=== PATIENT | female | born 2000 | race Caucasian/White ===

== ENCOUNTER 2019-05-11 16:24 | Observation (INO) ==
[2019-05-11] MEDS ORDERED: SODIUM CHLORIDE 0.9% 1000ML 1,000 ML IV ONE (17:32)
[2019-05-11] MEDS ORDERED: ONDANSETRON INJ 2 MG/ML 2 ML VIAL IV STA (17:32)
[2019-05-11 18:27] LABS: Basophils # (auto) 0.02 K/uL (0-0.2); Basophils % (auto) 0.1 %; Eosinophils # (auto) 0.01 K/uL (0-0.5); Eosinophils % (auto) 0.1 %; Hematocrit (blood only) 43.4 % (37-47); Hemoglobin 15.6 g/dL (12.0-16.0); Immature Granulocytes # (auto) 0.03 K/uL (0.00-0.02); Immature Granulocytes % (auto) 0.2 %; Lymphocytes # (auto) 3.16 K/uL (1.2-3.4); Lymphocytes % (auto) 20.6 %; Mean Corpuscular Hemoglobin 31.8 pg (25-34); Mean Corpuscular Hgb Conc 35.9 g/dL (32-36); Mean Corpuscular Volume 88.6 fL (80-100); Mean Platelet Volume 9.2 fL (7.4-10.4); Monocytes # (auto) 1.41 K/uL (0.11-0.59); Monocytes % (auto) 9.2 %; Neutrophils % (auto) 69.8 %; Platelet Count 268 K/uL (130-400); RDW Coefficient of Variation 12.2 % (11.5-14.5); RDW Standard Deviation 39.2 fL (36.4-46.3); White Blood Count 15.33 K/uL (4.8-10.8)
[2019-05-11 18:43] LABS: Albumin Level 4.8 gm/dl (3.4-5.0); BUN Creatinine Ratio 11.3 (10-20); Calcium 9.4 mg/dl (8.5-10.1); Creatinine Clr Calc Pharmacy 107.6 ml/min; Est GFR (African American) 145.2; Est GFR (Non-African American) 125.3; Potassium 3.7 mmol/L (3.5-5.1)
[2019-05-11 18:46] LABS: Albumin Globulin Ratio 1.4 (0.9-2); Globulin 3.4 gm/dl (2.5-4.0); Total Protein 8.2 gm/dl (6.4-8.2)
[2019-05-11 18:53] LABS: Appearance Urine Clear (Clear); Bilirubin Urine Negative (Negative); Blood Urine Negative (Negative); Color Urine Yellow; Glucose Urine UA Negative (Negative); Leukocyte Esterase Urine Negative (Negative); Nitrite Urine Negative (Negative); Protein Urine Negative (Negative); Specific Gravity Urine 1.025 (1.000-1.030); Urobilinogen Urine Negative (Negative)
[2019-05-11] MEDS ORDERED: IOVERSOL 100ml IV PRN (18:56)
[2019-05-11 19:05] LABS: Ketones Urine 3+ (Negative)
--- NOTE | 2019-05-11 19:17 | CT Scan Report ---
CT abd pelvis IV con only CLINICAL HISTORY: 19 years-old Female presenting with RLQ pain eval for appendicitis. TECHNIQUE: Multidetector CT of the abdomen and pelvis was performed after the administration of intra venous contrast. IV contrast: 91 mL of Optiray 320. One or more dose lowering techniques were used co nsistent with the principles of ALARA (as low as reasonably achievable), including automatic exposure control, mA or kV adjustment to individual patient size, and/or use of iterative reconstruction. COMPARISON: None. CT DOSE (mGy.cm): The estimated cumulative dose is 241.62 mGy.cm. FINDINGS: [employer] topogram: Unremarkable. Lung bases: Normal heart size. No pericardial or pleural effusion. No focal infiltrate or nodule at t he lung bases. Liver: Normal morphology. No liver lesion. Patent hepatic vasculature. Biliary: No intrahepatic or extrahepatic biliary ductal dilatation. Normal gallbladder. Pancreas: Normal. Spleen: Normal. Adrenal glands: Normal. Kidneys and ureters: Normal. No hydronephrosis. Bladder: Incompletely evaluated secondary to underdistention. Pelvic organs: Uterus and ovaries normal. Dominant follicle in the right ovary. Bowel: Mucosal hyperemia of the mildly distended appendix, which measures up to 8 mm in diameter at t he tip. No periappendiceal fluid. Trace if any of periappendiceal fat infiltration is present. No bow el obstruction. Peritoneal cavity: Trace free fluid in the pelvis. No free intraperitoneal gas. No loculated fluid co llection to suggest abscess. Lymph nodes: No enlarged lymph nodes in the abdomen or pelvis. Vasculature: Aorta and IVC patent and normal in caliber. Abdominal wall: Normal. Musculoskeletal: Normal. IMPRESSION: 1. Findings concerning for early acute appendicitis with a mildly dilated and hyperemic appendix. No tably, the appendix is only dilated at the tip. Surgical consultation is recommended. If surgical int ervention is not sought, serial examinations are necessary at a minimum with consideration for append iceal ultrasound versus repeat CT abdomen pelvis with oral contrast. If attempted interrogation of th e appendix with ultrasound is sought, please correlate with the location of the appendix on CT locate d in the iliac fossa, which has been marked on the images. 2. Trace free fluid in the pelvis likely physiologic. 3. Dominant follicle in the right ovary. The report will be called/faxed according to standard departmental protocol for a critical finding. Electronically signed by: Matt White M.D. 05/11/2019 7:15 PM
[2019-05-11] MEDS ORDERED: ATROPINE SULFATE 0.1 MG/ML 10ML SYR IV PRN (20:21)
[2019-05-11] MEDS ORDERED: ePHEDrine sulfate 50 MG/ML AMP IV PRN (20:21)
[2019-05-11] MEDS ORDERED: ONDANSETRON INJ 2 MG/ML 2 ML VIAL IV PRN ×2 (20:21→22:53)
[2019-05-11] MEDS ORDERED: BUPIVACAINE 0.5 % 5 MG/1 ML MPF 30ML VIAL ONE (20:23)
[2019-05-11] MEDS ORDERED: PROPOFOL IV EMULSION 10 MG/ML 20 ML VIAL IV ONE (20:32)
[2019-05-11] MEDS ORDERED: fentaNYL citrate 100 MCG/2 ML VIAL ONE ×2 (20:32→22:14)
[2019-05-11] MEDS ORDERED: LIDOCAINE HCL 2% 2 ML VIAL/AMP(20MG/ML) INFIL ONE (20:32)
--- NOTE | 2019-05-11 20:47 | History & Physical Report ---
Date of Service May 11, 2019 Assessment & Plan (1) Acute appendicitis: discussed laparoscopic appendectomy with risks of bleeding, infection, conversion to open, postop ileus/ abscess, negative appy. Consent signed. For OR tonight. Present on Admission?: Yes History of Present Illness 19 yr old [employer] student who presents with right lower quadrant abdominal pain since 3 am. Persistent, constant, sharp, worse with activity, 10/10 at times in severity, never had similar symptoms in past. Vomiting most of the day. Last meal was around midnight. [place] chilled but did not take temperature. Came to ER and CT showed appendicitis. Only past surgical history is ACL repair. Primary Care Provider: [facility] Allergies Allergy/AdvReac Type Severity Reaction Status Date / Time No Known Allergies Allergy Unverified 05/11/19 19:13 Home Medications Home Medications Medication Instructions Recorded Confirmed Type No Known Home Medications 05/11/19 05/11/19 History Past Med/Surg History Medical History No significant past medical history Surgical History No significant past surgical history Family History Other No pertinent family history Social History current occupational status: student Feels Safe at Home: Yes Smoking Status: Never smoker Review of Systems Constitutional: + chills Eyes: no problem reported Ear, Nose, Mouth, Throat: no problem reported Respiratory: no problem reported Cardiovascular: no problem reported Gastrointestinal: as per Subjective / HPI Genitourinary: no problem reported Neurologic: no problem reported Psychiatric: no problem reported Endocrine: no problem reported Physical Exam Constitutional: WD/WN, vitals as above Eyes: PERRL, conjunctivae normal, anicteric sclerae Respiratory: normal respiratory effort, lungs clear to auscultation Cardiovascular: RRR, no murmur, no edema Gastrointestinal (Abdomen): Inspection/Auscultation: abdomen normal to inspection and normal bowel sounds; abdomen not distended Percussion/Palpation: + abdomen tender (RLQ) and abdomen soft; no guarding Musculoskeletal: no cyanosis or clubbing, extremities motor strength 5/5 Neurologic: CN's II-XI intact bilaterally and moves all extremities Psychiatric: A+Ox3, euthymic affect Results & Data Vital Signs (Past 12 Hours) Vital Signs Temp Pulse Pulse Resp BP BP Pulse Ox 05/11/19 20:38 78 18 118/78 100 05/11/19 19:15 88 18 116/77 99 05/11/19 17:10 36.8 C 87 20 114/[address] 15.[address] scan showed acute appendicitis (1) Acute appendicitis Acute appendicitis type: unspecified acute appendicitis type Qualified Code(s): K35.80 - Unspecified acute appendicitis
--- NOTE | 2019-05-11 20:57 | Anesthesiology Consultation ---
Date of Service May 11, 2019 Assessment & Plan (1) Encounter for pre-operative examination: Chart Review Chart Review: Acceptable Risk for Surgery Consults Requested none ASA [id number] Proposed Anesthesia Anesthesia Type: General Risk / Benefits Reviewed With: PT / POA / Parent / Guardian, Accepts Plan and Informed Consent Obtained History Surgery Operation Date: 05/11/19 20:15 Proposed Procedures p Laparoscopic Appendectomy - Rajni Martin MD Height/Weight Height: 5 ft 3 in Weight: 54.2 kg Allergies Allergy/AdvReac Type Severity Reaction Status Date / Time No Known Allergies Allergy Unverified 05/11/19 19:13 Medications Home Medications Medication Instructions Recorded Confirmed Last Taken No Known Home Medications 05/11/19 05/11/19 Unknown Active Medications Generic Name Dose Route Start Last Admin Trade Name Freq PRN Reason Stop Dose Admin Ioversol 91 ml 05/11/19 18:56 05/11/19 18:56 Optiray 320 100ml IV 05/15/19 18:55 91 ml ONCE PRN Administration Interaction Checking NPO Date Last Intake of Fluids: 05/11/19 Time Last Intake of Fluids: 18:00 Date Last Intake of Solids: 05/11/19 Time Last Intake of Solids: 00:00 Past Medical History Medical History No significant past medical history Exercise / Class Metabolic Activity II 4-5 Yardwork/Stairs/Walk up hill Past Family History Family History Other No pertinent family history Past Surgical History Surgical History No significant past surgical history S/P ACL repair Past Anesthesia History No Hx of Anesthesia Complications and No Family Hx of Anesthesia Complications History of PONV No Hx of PONV and No Hx of Motion Sickness Social History Smoking Status: Never smoker Physical Exam Vital Signs Last Vital Signs Temp 98.2 F 05/11/19 17:10 Pulse 78 05/11/19 20:38 Resp 18 05/11/19 20:38 BP 118/78 05/11/19 20:38 Pulse Ox 100 05/11/19 20:38 ENMT Mouth: + chipped teeth (R upper front) Thyromental Distance: > or= 3.5 Finger Breadths Mallampati Class: I Neck normal visual inspection Respiratory normal respiratory effort Auscultation: lungs clear to auscultation bilaterally Cardiovascular Rate/Rhythm: regular rate and regular rhythm Testing Laboratory Results 05/11/19 18:15 05/11/19 18:15 Urine Color Yellow 05/11/19 18:00 Urine Appearance Clear (Clear) 05/11/19 18:00 Urine pH 7.0 (4.5-7.5) 05/11/19 18:00 Ur Specific Sebastian 1.025 (1.000-1.030) 05/11/19 18:00 Urine Protein Negative (Negative) 05/11/19 18:00 Urine Glucose (UA) Negative (Negative) 05/11/19 18:00 Urine Ketones 3+ (Negative) H 05/11/19 18:00 Urine Nitrite Negative (Negative) 05/11/19 18:00 Ur Leukocyte Esterase Negative (Negative) 05/11/19 18:00 05/11/19 18:00 POC Ur Test NEG
[2019-05-11] MEDS ORDERED: cefOXitin 2,000 MG/60 ML BAG IV STA (20:59)
[2019-05-11] MEDS ORDERED: SUCCINYLCHOLINE CHLORIDE 20 MG/ML 10 ML VIAL ONE (21:22)
[2019-05-11] MEDS ORDERED: ROCURONIUM BROMIDE 10 MG/ML 5 ML VIAL ONE (21:22)
--- NOTE | 2019-05-11 21:51 | Operative Report ---
Post Operative Report Pre & Post Diagnosis Operation Date: 05/11/19 20:15 Pre-Op Diagnosis: Appendicitis Post-Op Diagnosis: Appendicitis I identified the patient and participated in the time-out.: Yes Procedure Operation Date: 05/11/19 20:15 Actual Procedures p Laparoscopic Appendectomy(Not Applicable) - Rajni Martin MD Surgeon Rajni Martin MD Green End Man none Estimated Blood Loss 5 Findings Consistent with Post-Op Diagnosis Specimens appendix Description of Procedure see dictated op note. Findings of early acute appendicitis with thickened mildly hyperemic appendix I attest to the content of the Intraoperative Record and any orders documented therein. Any exceptions are noted below.
[2019-05-11] MEDS: fentaNYL citrate 100 MCG/2 ML VIAL IV PRN ×2 (22:14→22:19)
--- NOTE | 2019-05-11 22:31 | Anesthesiology Progress Note ---
Date of Service May 11, 2019 Anesthesia Post Procedure Vital Signs Vital Signs: Temp Pulse Pulse Resp BP BP Pulse Ox 05/11/19 22:20 95 H 14 135/87 93 05/11/19 22:10 84 14 120/90 98 05/11/19 22:05 90 14 135/87 99 05/11/19 21:55 98.1 F 105 H 18 108/89 99 05/11/19 20:38 78 18 118/78 100 05/11/19 19:15 88 18 116/77 99 05/11/19 17:10 98.2 F 87 20 114/81 96 Pain Intensity Right Abdomen: Pain Intensity: 5 Transfer of Care Handoff Completed per policy Notes Mental Status: alert / awake / arousable and participated in evaluation Patient Amnestic to Procedure: Yes Nausea / Vomiting: adequately controlled Pain: adequately controlled Airway Patency, RR, SpO2: stable & adequate BP & HR: stable & adequate Hydration State: stable & adequate Anesthetic Complications: no major complications apparent and Pt Satisfied with anesthetic care
[2019-05-11] MEDS ORDERED: KETOROLAC 30 MG/ML VIAL IV PRN ×2 (22:53)
[2019-05-11] MEDS ORDERED: MoRPHine SULFATE 4 MG/ML 1 ML CARP\\VIAL IV PRN (22:53)
[2019-05-11] MEDS ORDERED: IBUPROFEN 200 MG TAB PO PRN (22:53)
[2019-05-11] MEDS ORDERED: MoRPHine SULFATE 2 MG/ML CARP IV PRN ×2 (22:53)
[2019-05-11] MEDS ORDERED: ACETAMINOPHEN 325 MG TAB PO PRN (22:53)
[2019-05-11] MEDS ORDERED: OXYCODONE/ACETAMINOPHEN 5mg/325mg TAB PO PRN ×2 (22:53)
--- NOTE | 2019-05-11 22:59 | Operative Report ---
DATE OF OPERATION: 05/11/2019 PREOPERATIVE DIAGNOSIS: Acute appendicitis. POSTOPERATIVE DIAGNOSIS: Acute appendicitis. OPERATIVE PROCEDURE: Laparoscopic appendectomy. SURGEON: Rajni Martin MD MILL TENDER SECOND OPERATOR: None. ANESTHESIA: General endotracheal anesthesia. ASA CLASS: 1E. SPECIMENS: Appendix. DRAINS: None. COMPLICATIONS: None. OPERATIVE FINDINGS: Dilated thickened mildly hyperemic appendix consistent with early acute appendicitis. INDICATIONS: Ms. Gutierres is a 19-year-old woman who presented with clinical findings of acute appendicitis. CT scan showed a mildly thickened, mildly dilated appendix. She was counseled regarding laparoscopic appendectomy and consented to proceed. DESCRIPTION OF PROCEDURE: The patient received Mefoxin preoperatively after the induction of general endotracheal anesthesia and placed in sequential compression devices. Her abdomen was sterilely prepped and draped. She was positioned in Trendelenburg. An infraumbilical incision was made and a Veress needle was placed into the peritoneal cavity. This was tested with the saline drop test. Initial pressure was 2 mmHg and this was taken up to 15?mmHg. A 5-mm trocar was placed and an additional 5-mm was placed in the left lower quadrant under direct vision. The 5-mm trocar at the infraumbilical area was changed out to a 12 mm under direct vision and the second 5mm was placed in the midline pubic area under direct vision. The appendix was curled up on the lateral side of the cecum. This was noted to be thickened and mildly dilated at the tip with the tip measuring just under a centimeter. There was mild hyperemia all consistent with early acute appendicitis. The base of the appendix on the cecum was clean. The appendix was grasped and a window created on the base of the appendix on the cecum. This was divided with a firing of the Endo-MITALI 45 purple load stapler. The appendiceal mesentery was taken with a single load of the melgar load for the stapler. The appendix was placed in an Endocatch and removed through the infraumbilical incision. Hemostasis was noted to be present. The abdomen was irrigated and suctioned clear. Trocars were removed. Marcaine 30 mL of 0.5% had been used for local anesthesia throughout the procedure. The fascia of the infraumbilical incision was closed with 0 Vicryl stitches placed anteriorly. The skin of all 3 incisions closed with running subcuticular 4-0 Vicryl sutures. Steri-Strip and sterile dressings were applied. She was awakened and taken to recovery in stable condition. I attest to the content of the Intraoperative Record and any orders documented therein. Any exception s are noted below.
[2019-05-11] MEDS: LACTATED RINGER'S 1,000 ML IV SCH ×2 (23:07→23:19)
--- NOTE | 2019-05-11 23:44 | Emergency Department Note ---
Entered by Shawnee Geller acting as a scribe for Nick Lizama MD History of Present Illness General Chief complaint: Abdominal Pain Stated complaint: ABDOMINAL PAIN Source: patient History of Present Illness Onset (ago): hour(s) (0300 this morning) Location: abdomen (RLQ) Radiation: non-radiation Pain Consistency: + constant Maximum Pain Intensity: 6 Quality: + sharp and + other (RLQ abdominal pain) Relieved By: + none Exacerbated By: + none Associated symptoms: + other (Positive vomiting (abnormal after drinking as she believes she did not drink a lot), fevers, vaginal discharge, chance of , urinary symptoms, previous appendectomy) The patient is a 19 year old female who presents to the ED with complaints of RLQ abdominal pain beginning at 0300 today. She describes her pain as sharp and notes it does not radiate. She states her pain is constant and nothing modifies it. She notes she drank alcohol last night and was vomiting this morning. She states this is abnormal for her as she did not drink a lot of alcohol to cause her to vomit. Pt denies any fevers, abnormal vaginal bleeding or vaginal discharge, chance of , urinary symptoms, previous appendectomy. Home Medications Home Medications Medication Instructions Recorded Confirmed Type No Known Home Medications 05/11/19 05/11/19 History Allergies Allergy/AdvReac Type Severity Reaction Status Date / Time No Known Allergies Allergy Unverified 05/11/19 19:13 Past Med/Surg History Medical History No significant past medical history Surgical History No significant past surgical history S/P ACL repair Family History Other No pertinent family history Social History current occupational status: student Feels Safe at Home: Yes Smoking Status: Never smoker Review of Systems See HPI for pertinent positives & negatives. and A total of 10 systems reviewed and were otherwise negative Physical Exam Vital Signs Vital Signs - 24 hr 05/11/19 17:10 05/11/19 19:15 05/11/19 20:38 Temperature 36.8 C Temperature Source Oral Sepsis Recent Fever Within 48 Hours No Sepsis Action Taken by Nursing No Action Required Pulse Rate 87 78 Pulse Rate [Apical] 88 Pulse Rhythm Regular Pulse Rhythm [Apical] Pulse Strength Normal Respiratory Rate 20 18 18 Respiratory Effort / Characteristics Non-Labored Spontaneous Respiratory Depth Normal Respiratory Pattern Regular Blood Pressure 114/81 118/78 Blood Pressure [Left Arm] 116/77 Blood Pressure Mean 92 Blood Pressure Mean [Left Arm] 90 Blood Pressure Position [Left Arm] Pulse Oximetry 96 99 100 Oxygen Delivery Method Room Air Room Air Oxygen Flow Rate 05/11/19 21:55 Temperature 36.7 C Temperature Source Oral Sepsis Recent Fever Within 48 Hours Sepsis Action Taken by Nursing Pulse Rate Pulse Rate [Apical] 105 H Pulse Rhythm Pulse Rhythm [Apical] Regular Pulse Strength Respiratory Rate 18 Respiratory Effort / Characteristics Non-Labored Spontaneous Respiratory Depth Normal Respiratory Pattern Regular Blood Pressure Blood Pressure [Left Arm] 108/89 Blood Pressure Mean Blood Pressure Mean [Left Arm] 95 Blood Pressure Position [Left Arm] Semi-fowlers Pulse Oximetry 99 Oxygen Delivery Method Oxymask Oxygen Flow Rate 10 Constitutional: Vital signs reviewed. Eyes: Pupils are equal round reactive to light. Conjunctiva are noninjected. ENT: Pharynx is clear without erythema or exudate. Mucous membranes are dry. Neck supple without meningeal signs. Respiratory: Clear to auscultation bilaterally. Breath sounds are equal bilaterally. Cardiovascular: Regular rate and rhythm. No rubs or gallops. GI: Soft, nondistended. RLQ tenderness. No guarding. Bowel sounds are present. Musculoskeletal: No peripheral edema. No lower extremity tenderness. No CVA tenderness. Integumentary: No cyanosis. Neurological: The patient is awake and alert. No focal deficits. Psychiatric: Normal affect. Course 1713: Past medical records reviewed. The patient was evaluated in room A11. A complete history and physical exam was performed. 1844: I discussed her test results. She is waiting for her CT. 2001: I discussed the patients results with her at this time. 2010: Discussed the patient's case with Dr. Martin, General Surgery. She is on her way and has notified the OR team. 2012: I reevaluated the patient at this time. I spoke to the patient's mother on the telephone as per her request. Administered Medications Fentanyl Citrate (Fentanyl Citrate) 50 mcg IV Q5M PRN PRN Reason: PACU Use Only-Pain Stop: 05/12/19 01:21 Last Admin: 05/11/19 22:19 Dose: 50 mcg Documented by: [id number] Admin: 05/11/19 22:14 Dose: 50 mcg Documented by: [id number] Lactated Ringer's (Lr) 1,000 mls @ 100 mls/hr IV .Q10H WILLIAM Stop: 06/10/19 22:52 Last Admin: 05/11/19 23:19 Dose: 100 mls/hr Documented by: [id number] Infusion: 05/11/19 23:19 Dose: 100 mls/hr Documented by: [id number] Admin: 05/11/19 23:07 Dose: 100 mls/hr Documented by: [id number] Ioversol (Optiray 320 100ml) 91 ml IV ONCE PRN PRN Reason: Interaction Checking Stop: 05/15/19 18:55 Last Admin: 05/11/19 18:56 Dose: 91 ml Documented by: [id number] Morphine Sulfate (Morphine Sulfate) 2 mg IV Q3H PRN PRN Reason: MODERATE Pain (Scale 4,5,6) Stop: 05/25/19 22:52 Last Admin: 05/11/19 23:07 Dose: 2 mg Documented by: [id number] Discontinued Medications Bupivacaine HCl (Marcaine 0.5% Mpf) Confirm Administered Dose 30 ml .ROUTE .STK- MED ONE Stop: 05/11/19 20:24 Last Admin: 05/11/19 21:37 Dose: 30 ml Documented by: [id number] Fentanyl Citrate (Fentanyl Citrate) Confirm Administered Dose 100 mcg .ROUTE .STK-MED ONE Stop: 05/11/19 22:15 Last Admin: 05/11/19 23:18 Dose: Not Given Documented by: [id number] Sodium Chloride (Nss 1000ml) 1,000 mls @ 999 mls/hr IV .Q1H1M ONE Stop: 05/11/19 18:32 Last Infusion: 05/11/19 22:55 Dose: 0 mls/hr Documented by: [id number] Admin: 05/11/19 18:15 Dose: 999 mls/hr Documented by: [id number] Cefoxitin Sodium (Mefoxin) 2,000 mg in 60 mls @ 100 mls/hr IV NOW STA Stop: 05/11/19 21:34 Last Infusion: 05/11/19 22:54 Dose: 0 mls/hr Documented by: [id number] Admin: 05/11/19 21:10 Dose: 100 mls/hr Documented by: [id number] Ondansetron HCl (Zofran) 4 mg IV NOW STA Stop: 05/11/19 17:33 Last Admin: 05/11/19 18:15 Dose: 4 mg Documented by: [id number] Medical Decision Making Differential Diagnosis Differential diagnosis: Etiologies such as acute appendicitis, perforation, abscess, ovarian cyst, ectopic , dehydration, as well as others were entertained. Medical Records Attestation: I reviewed the patient's medical records. Home Medications Current Medication List: was personally reviewed by me Laboratory Data Attestation: I reviewed the patient's lab results. Result diagrams: 05/11/19 18:15 05/11/19 18:15 Lab Results 05/11/19 05/11/19 05/11/19 Range/Units 18:00 18:00 18:15 WBC 15.33 H (4.8-10.8) K/uL RBC 4.90 (4.2-5.4) M/uL Hgb 15.6 (12.0-16.0) g/dL Hct 43.4 (37-47) % MCV 88.6 (80-100) fL MCH 31.8 (25-34) pg MCHC 35.9 (32-36) g/dL RDW Std Deviation 39.2 (36.4-46.3) fL RDW Coeff of Yousif 12.2 (11.5-14.5) % Plt Count 268 (130-400) K/uL MPV 9.2 (7.4-10.4) fL Immature Gran % (Auto) 0.2 % Neut % (Auto) 69.8 % Lymph % (Auto) 20.6 % [place] % (Auto) 9.2 % Eos % (Auto) 0.1 % Baso % (Auto) 0.1 % Immature Gran # (Auto) 0.03 H (0.00-0.02) K/uL Neut # (Auto) 10.70 H (1.4-6.5) K/uL Lymph # (Auto) 3.16 (1.2-3.4) K/uL [place] # (Auto) 1.41 H (0.11-0.59) K/uL Eos # (Auto) 0.01 (0-0.5) K/uL Baso # (Auto) 0.02 (0-0.2) K/uL Sodium (136-145) mmol/L Potassium (3.5-5.1) mmol/L Chloride (98-107) mmol/L Carbon Dioxide (21-32) mmol/L Anion Gap (3-11) BUN (7-18) mg/dl Creatinine (0.6-1.2) mg/dl Est Cr Clr Drug Dosing ml/min Est GFR ( Amer) Est GFR (Non-Af Amer) BUN/Creatinine Ratio (10-20) Glucose (70-99) mg/dl Calcium (8.5-10.1) mg/dl Total Bilirubin (0.2-1) mg/dl AST (15-37) U/L ALT (12-78) U/L Alkaline Phosphatase (45-117) U/L Total Protein (6.4-8.2) gm/dl Albumin (3.4-5.0) gm/dl Globulin (2.5-4.0) gm/dl Albumin/Globulin Ratio (0.9-2) Lipase (73-393) U/L Urine Color Yellow Urine Appearance Clear (Clear) Urine pH 7.0 (4.5-7.5) Ur Specific [place] 1.025 (1.000-1.030) Urine Protein Negative (Negative) Urine Glucose (UA) Negative (Negative) Urine Ketones 3+ H (Negative) Urine Blood Negative (Negative) Urine Nitrite Negative (Negative) Urine Bilirubin Negative (Negative) Urine Urobilinogen Negative (Negative) Ur Leukocyte Esterase Negative (Negative) POC Ur Test NEG (NEG) 05/11/19 Range/Units 18:15 WBC (4.8-10.8) K/uL RBC (4.2-5.4) M/uL Hgb (12.0-16.0) g/dL Hct (37-47) % MCV (80-100) fL MCH (25-34) pg MCHC (32-36) g/dL RDW Std Deviation (36.4-46.3) fL RDW Coeff of Yousif (11.5-14.5) % Plt Count (130-400) K/uL MPV (7.4-10.4) fL Immature Gran % (Auto) % Neut % (Auto) % Lymph % (Auto) % [place] % (Auto) % Eos % (Auto) % Baso % (Auto) % Immature Gran # (Auto) (0.00-0.02) K/uL Neut # (Auto) (1.4-6.5) K/uL Lymph # (Auto) (1.2-3.4) K/uL [place] # (Auto) (0.11-0.59) K/uL Eos # (Auto) (0-0.5) K/uL Baso # (Auto) (0-0.2) K/uL Sodium 138 (136-145) mmol/L Potassium 3.7 (3.5-5.1) mmol/L Chloride 106 (98-107) mmol/L Carbon Dioxide 24 (21-32) mmol/L Anion Gap 8.0 (3-11) BUN 8 (7-18) mg/dl Creatinine 0.69 (0.6-1.2) mg/dl Est Cr Clr Drug Dosing 107.6 ml/min Est GFR ( Amer) 145.2 Est GFR (Non-Af Amer) 125.3 BUN/Creatinine Ratio 11.3 (10-20) Glucose 79 (70-99) mg/dl Calcium 9.4 (8.5-10.1) mg/dl Total Bilirubin 1.0 (0.2-1) mg/dl AST 13 L (15-37) U/L ALT 17 (12-78) U/L Alkaline Phosphatase 61 (45-117) U/L Total Protein 8.2 (6.4-8.2) gm/dl Albumin 4.8 (3.4-5.0) gm/dl Globulin 3.4 (2.5-4.0) gm/dl Albumin/Globulin Ratio 1.4 (0.9-2) Lipase 70 L (73-393) U/L Urine Color Urine Appearance (Clear) Urine pH (4.5-7.5) Ur Specific [place] (1.000-1.030) Urine Protein (Negative) Urine Glucose (UA) (Negative) Urine Ketones (Negative) Urine Blood (Negative) Urine Nitrite (Negative) Urine Bilirubin (Negative) Urine Urobilinogen (Negative) Ur Leukocyte Esterase (Negative) POC Ur Test (NEG) Imaging Data Radiologist's Impression: Radiology results as stated below per my review and the radiologist's interpretation: CT abd pelvis IV con only CLINICAL HISTORY: 19 years-old Female presenting with RLQ pain eval for appendicitis. TECHNIQUE: Multidetector CT of the abdomen and pelvis was performed after the administration of intravenous contrast. IV contrast: 91 mL of Optiray 320. One or more dose lowering techniques were used consistent with the principles of ALARA (as low as reasonably achievable), including automatic exposure control, mA or kV adjustment to individual patient size, and/or use of iterative reconstruction. COMPARISON: None. CT DOSE (mGy.cm): The estimated cumulative dose is 241.62 mGy.cm. FINDINGS: [employer] topogram: Unremarkable. Lung bases: Normal heart size. No pericardial or pleural effusion. No focal infiltrate or nodule at the lung bases. Liver: Normal morphology. No liver lesion. Patent hepatic vasculature. Biliary: No intrahepatic or extrahepatic biliary ductal dilatation. Normal gallbladder. Pancreas: Normal. Spleen: Normal. Adrenal glands: Normal. Kidneys and ureters: Normal. No hydronephrosis. Bladder: Incompletely evaluated secondary to underdistention. Pelvic organs: Uterus and ovaries normal. Dominant follicle in the right ovary. Bowel: Mucosal hyperemia of the mildly distended appendix, which measures up to 8 mm in diameter at the tip. No periappendiceal fluid. Trace if any of periappendiceal fat infiltration is present. No bowel obstruction. Peritoneal cavity: Trace free fluid in the pelvis. No free intraperitoneal gas. No loculated fluid collection to suggest abscess. Lymph nodes: No enlarged lymph nodes in the abdomen or pelvis. Vasculature: Aorta and IVC patent and normal in caliber. Abdominal wall: Normal. Musculoskeletal: Normal. IMPRESSION: 1. Findings concerning for early acute appendicitis with a mildly dilated and hyperemic appendix. Notably, the appendix is only dilated at the tip. Surgical consultation is recommended. If surgical intervention is not sought, serial exa minations are necessary at a minimum with consideration for appendiceal ultrasound versus repeat CT abdomen pelvis with oral contrast. If attempted interrogation of the appendix with ultrasound is sought, please correlate with the location of the appendix on CT located in the iliac fossa, which has been marked on the images. 2. Trace free fluid in the pelvis likely physiologic. 3. Dominant follicle in the right ovary. The report will be called/faxed according to standard departmental protocol for a critical finding. Electronically signed by: Matt White M.D. 05/11/2019 7:15 PM Blood Pressure Blood Pressure Findings: Elevated blood pressure Blood Pressure Disposition: elevated BP felt to be situational MDM Narrative I did evaluate the patient as noted above. Patient is presenting with right lower quadrant pain. She is tender at McBurney's point. I am concerned about acute appendicitis. IV access was established. She declined any pain medicat ion. She was made n.p.o. She was given IV Zofran for her nausea. I also treated her with normal saline IV. I did order a urine analysis. She does not have a UTI. Urine test is negative. I did order and review the patient's blood work as noted in the electronic medical record. Her white count is over 15,000. She is not anemic. Electrolytes are unremarkable. I did order a CT of the abdomen and pelvis. I did review the images myself as well as the radiology report as described above. She does have acute appendicitis without complication. I did discuss the test results with her. I did discuss the case with Dr. Martin of surgery who will take her to the OR for appendectomy. I did discuss management with her mother over the telephone per the patient's wish. Impression & Plan Acute appendicitis Discharge Plan Visit Data Chief Complaint: Abdominal Pain Stated Complaint: ABDOMINAL PAIN ED Provider: Nick Lizama Discharge Problem: Acute appendicitis Patient Disposition: Being Evaluated by Surgeon Discharge Instructions Interventions: ED Discharge Assessment Last Done: 05/11/19 20:38 Discharge Problem: Acute appendicitis Qualifiers: Acute appendicitis type: unspecified acute appendicitis type Qualified Code(s): K35.80 - Unspecified acute appendicitis The scribe's documentation has been prepared under my direction and personally reviewed by me in its entirety. I confirm that the note above accurately reflects all work, treatment, procedures, and medical decision making performed by me.
[2019-05-12] MEDS: LACTATED RINGER'S 1,000 ML IV SCH (07:38)
--- NOTE | 2019-05-12 08:15 | Anesthesiology Progress Note ---
Date of Service May 12, 2019 Anesthesia Post Procedure Vital Signs Vital Signs: Temp Pulse Pulse Pulse Pulse Resp BP 05/12/19 07:42 37.2 C 72 15 05/12/19 03:58 36.9 C 74 16 05/12/19 01:53 37 C 68 16 05/12/19 01:35 75 05/12/19 00:50 37 C 73 16 05/11/19 23:50 36.8 C 64 16 05/11/19 23:20 37.3 C 82 16 05/11/19 23:05 37.3 C 82 16 05/11/19 22:30 37.2 C 87 14 05/11/19 22:20 95 H 14 05/11/19 22:10 84 14 05/11/19 22:05 90 14 05/11/19 21:55 36.7 C 105 H 18 05/11/19 20:38 78 18 118/78 05/11/19 19:15 88 18 05/11/19 17:10 36.8 C 87 20 114/81 BP Pulse Ox 05/12/19 07:42 95/62 L 97 05/12/19 03:58 101/62 97 05/12/19 01:53 102/65 97 05/12/19 01:35 110/70 05/12/19 00:50 115/72 98 05/11/19 23:50 97/62 L 98 05/11/19 23:20 120/76 96 05/11/19 23:05 120/76 96 05/11/19 22:30 122/74 93 05/11/19 22:20 135/87 93 05/11/19 22:10 120/90 98 05/11/19 22:05 135/87 99 05/11/19 21:55 108/89 99 05/11/19 20:38 100 05/11/19 19:15 116/77 99 05/11/19 17:10 96 Pain Intensity Right Abdomen: Pain Intensity: 3 Notes Mental Status: alert / awake / arousable and participated in evaluation Patient Amnestic to Procedure: Yes Nausea / Vomiting: adequately controlled Pain: adequately controlled Airway Patency, RR, SpO2: stable & adequate BP & HR: stable & adequate Hydration State: stable & adequate Anesthetic Complications: no major complications apparent
--- NOTE | 2019-05-12 13:33 | Surgery Progress Note ---
Date of Service May 12, 2019 Assessment & Plan (1) Acute appendicitis: Postoperative day 1 status post laparoscopic cholecystectomy Doing well Can discharge to home Discussed postoperative activity restrictions Decision was made to use Tylenol and ibuprofen for pain control Can follow-up in the office Subjective Postoperative day #1, status post laparoscopic appendectomy Having very little pain No nausea or vomiting Tolerated regular diet Physical Exam Gastrointestinal (Abdomen): Inspection/Auscultation: + abdominal surgical i ncision (Clean, dry and intact); abdomen not distended Percussion/Palpation: + abdomen tender and abdomen soft Results & Data Vital Signs (Past 12 Hours) Vital Signs Temp Pulse Pulse Pulse Resp BP Pulse Ox 05/12/19 13:28 37.2 C 87 74 72 15 95/62 L 97 05/12/19 07:42 37.2 C 72 15 95/62 L 97 05/12/19 03:58 36.9 C 74 16 101/62 97 05/12/19 01:53 37 C 68 16 102/65 97 05/12/19 01:35 75 110/70 (1) Acute appendicitis Acute appendicitis type: unspecified acute appendicitis type Qualified Code(s): K35.80 - Unspecified acute appendicitis
--- NOTE | 2019-05-13 10:18 | Discharge Summary ---
Date of Service May 13, 2019 Admission HPI Per Admitting Provider 19 yr old [employer] student who presents with right lower quadrant abdominal pain since 3 am. Persistent, constant, sharp, worse with activity, 10/10 at times in severity, never had similar symptoms in past. Vomiting most of the day. Last meal was around midnight. [place] chilled but did not take temperature. Came to ER and CT showed appendicitis. Only past surgical history is ACL repair. Principal Diagnosis Acute appendicitis Discharge Data Allergies Allergy/AdvReac Type Severity Reaction Status Date / Time No Known Allergies Allergy Unverified 05/11/19 19:13 Consultations 05/11/19 20:29 ED Decision to Admit Stat Procedures Performed Operation Date: 05/11/19 20:15 Actual Procedures p Laparoscopic Appendectomy(Not Applicable) - Rajni Martin MD Ordered Studies 05/11/19 17:32 CT abd pelvis IV con only Stat Hospital Course (1) Acute appendicitis: Patient was taken to operating room for laparoscopic appendectomy by Dr. Martin. Patient found to have early acute appendicitis without perforation or abscess. Patient tolerated procedure well and was transferred to recovery and then medical/surgical floor for postoperative care. Diet was started at clear liquids and advanced as tolerated, Pain management with PO Percocet and breakthrough IV morphine, activity as tolerated. POD # 1 vitals stable, afebrile. Post op pain controlled. No nausea or vomiting. Tolerating regular diet. Patient was discharged home on POD # 1 in stable condition. Total Time Total Time Spent Total Time Spent (In Minutes): 30 Total Time Includes: Examination of the Patient, Discharge Planning and Medication Reconciliation Discharge Plan Discharge Items Patient Disposition: Home - Self-Care Reason For Visit: ACUTE APPENDICITIS Discharge Diagnosis: Acute Appendicitis Activity: Per Instructions section Non-emergency contact: Surgeon Call non-emergency contact if: your symptoms worsen, your pain is not c ontrolled, your pain is worsening, your pain is concerning for you, you have a fever, your temperature is above 101, your wound has increased redness, your wound has increased drainage and your wound pain has increased Follow-up/Referrals: [facility] [Primary Care Provider] - Diet: Regular Addtl Attending Provider Instructions: Post-Surgical ~Discharge Instructions Activity Recommendations: - lifting limitation: (10 pounds for 2 weeks), - exercise/sex/sports limit: (nonstrenuous for 2 weeks), - driving or machine use limit: (none for 1 week), - Shower/bathe limit: (may shower beginning tomorrow) Diet: - Resume previous diet SPECIAL CARE INSTRUCTIONS: - May shower tomorrow morning. Let water run over area and pat dry. - Leave steri strips on for one week. - Call the surgeon's office with any questions or concerns - - (ex. temperature higher than 101 degrees F, excessive bleeding or pain). MEDICATIONS: - Resume previous medications unless instructed otherwise by your surgeon. - Ibuprofen 600 mg every 6 hours with food - Tylenol 650 mg every 6 hours as needed. DO NOT exceed 3000 mg of Tylenol in 24 hours. FOLLOW UP VISIT: - If not already scheduled, please call the office to schedule a two week follow-up appointment. Office number Pending Studies at Discharge: Yes (pathology, will be reviewed at follow up visit) Stand-Alone Forms: My [facility], Work/School Release (Inpt), Smoking Cessation Medications and DC Order Prescriptions: No Action No Known Home Medications RF: 0 Discharge Orders: Discharge Order (Routine); Ordered 05/12/19 Ordered By: Ni Guevara/Other Patient Handouts: Appendectomy After Admission Data Admit Date/Time: 05/11/19 21:59 Attending Provider: Rajni Martin Admit Provider: Rajni Martin Primary Care Provider: [facility] Other Providers: Rajni Martin Other Interventions: Discharge Summary Assessment (RN) Last Done: 05/12/19 13:28 DC Date/Time DO NOT enter until pt leaves facility: 05/12/19 15:46
== END 2019-05-12 15:46 | disposition home or self-care (01) ==
LOC: ED 16:24 → 3N 16:24